=== PATIENT | female | born 1980 | race American Indian/Alaskan Native ===

== ENCOUNTER 2022-01-15 10:34 | Outpatient (CLI) | payer BC ==
--- NOTE | 2022-01-16 15:41 | Mammography Report ---
DIGITAL SCREENING MAMMOGRAM WITH CAD, 01/15/2022 CLINICAL INFORMATION / INDICATION: Routine screening mammography. N60.19 TECHNIQUE: Digital bilateral 2D mammography was obtained in the craniocaudal and mediolateral obliqu e projections. This examination was interpreted with the benefit of Computer-Aided Detection analysis . COMPARISON: None FINDINGS: Breast Density: The breasts are heterogeneously dense, which may obscure small masses. No dominant mass, suspicious calcifications, or architectural distortion in either breast. Scattered bilateral nodular densities are seen throughout both breasts, for example the subareolar ri ght breast. IMPRESSION: Multiple scattered bilateral breast nodules in a patient with reported palpable nodularit y. Follow up recommendation: Ultrasound--complete bilateral breast ultrasound BI-RADS Category 0: INCOMPLETE. Needs additional imaging evaluation and/or prior mammograms for vamsi major. A "normal" or negative report should not discourage follow up or biopsy of a clinically significant f inding. A written summary of these findings will be mailed to the patient. The patient will be entered into a mammography reporting system which will generate a reminder letter for the patient's next appointmen t at the appropriate interval. The [employer] recommends yearly mammograms starting at age 40 and continuing as l carlitos as a woman is in good health. Breast MRI is recommended for women with an approximate 20-25% or greater lifetime risk of breast cancer, including women with a strong family history of breast or ova karolyn cancer or who have been treated for Hodgkin's disease. Signer Name: Uri Villalobos MD Signed: 01/16/2022 3:37 PM Workstation Name: [id number]
== END 2022-01-15 10:35 | disposition home or self-care (01) ==
LOC: SPVWC 10:34
PROVIDERS: ATTEND Obstetrics & Gynecology
DX: Z12.31 Encounter for screening mammogram for malignant neoplasm of breast (principal)
CPT/HCPCS: 77067

== ENCOUNTER 2022-02-21 10:37 | Outpatient (CLI) | payer BC ==
--- NOTE | 2022-02-21 12:12 | Ultrasound Report ---
ULTRASOUND BREAST BILATERAL COMPLETE, 02/21/2022 CLINICAL INFORMATION / INDICATION: N63.0. TECHNIQUE: Complete sonographic evaluation of all 4 quadrants and retroareolar region was performed. COMPARISON: Mammogram dated 01/15/2022 FINDINGS: Ultrasound imaging of the 4 quadrants of the bilateral breasts as well as the retroareolar region dem onstrates normal fibroglandular echotexture without evidence of mass, focal fluid collection or archi tectural distortion. IMPRESSION: No sonographic evidence of malignancy. Follow up recommendation: Routine yearly BI-RADS Category 1: NEGATIVE. A normal or "negative" report should not preclude biopsy or follow-up of a clinically suspicious find ing. Signer Name: Harlan Damon DO Signed: 02/21/2022 12:07 PM Workstation Name: [id number]
== END 2022-02-21 10:38 | disposition home or self-care (01) ==
LOC: US 10:37
PROVIDERS: ATTEND Obstetrics & Gynecology
DX: R92.8 Other abnormal and inconclusive findings on diagnostic imaging of breast (principal); R92.2 Inconclusive mammogram; N63.0 Unspecified lump in unspecified breast